=== PATIENT | male | born 1955 | race Caucasian/White ===

== ENCOUNTER 2024-11-07 22:54 | Emergency (ER) | payer MEDICARE ==
[2024-11-07] MEDS ORDERED: Lorazepam 2 MG/ML VIAL ONE (23:13)
[2024-11-08] MEDS ORDERED: Ketorolac Tromethamine 30 MG (1 mL) VIAL ONE (00:43)
== END 2024-11-08 00:42 | disposition home or self-care (01) ==
LOC: ERS 22:54
DX: S00.03XA Contusion of scalp, initial encounter (principal); M54.2 Cervicalgia; I10 Essential (primary) hypertension; E11.9 Type 2 diabetes mellitus without complications; Z55.0 Illiteracy and low-level literacy; Z79.82 Long term (current) use of aspirin; W07.XXXA Fall from chair, initial encounter; Y93.89 Activity, other specified
CPT/HCPCS: 70450; 72125; 72131; J1885; J2060; 96374